=== PATIENT | male | born 1950 | race Caucasian/White ===

== ENCOUNTER 2023-09-26 16:53 | Emergency (ER) | payer MEDICARE ==
[2023-09-26 17:25] VITALS: TEMP 98
--- NOTE | 2023-09-26 19:06 | XR ---
EXAMINATION TYPE: XR foot complete RT DATE OF EXAM: 09/26/2023 5:25 PM CLINICAL INDICATION:Male, 72 years old with history of fall; [facility] TECHNIQUE: 3 views of the ankle, 3 views of the foot. Lucency consistent with acute nondisplaced oblique fracture of the distal fibular shaft extending to the level of the ankle mortise, with moderate adjacent soft tissue swelling. Ankle mortise appears pr eserved. Distal tibia appears to be intact. No significant malalignment. Talar dome is unremarkable. There are mild/moderate degenerative changes throughout the foot. No evidence of acute fracture or si gnificant malalignment. Tiny plantar calcaneal spur. IMPRESSION: Right foot and ankle: Acute nondisplaced oblique fracture of the distal fibular shaft extending to the level of the ankle m ortise, with moderate adjacent soft tissue swelling.
--- NOTE | 2023-09-26 19:07 | XR ---
EXAMINATION TYPE: XR ankle complete RT DATE OF EXAM: 09/26/2023 5:25 PM CLINICAL INDICATION:Male, 72 years old with history of fall; H COMPARISON: None TECHNIQUE: 3 views of the ankle, 3 views of the foot. Lucency consistent with acute nondisplaced oblique fracture of the distal fibular shaft extending to the level of the ankle mortise, with moderate adjacent soft tissue swelling. Ankle mortise appears pr eserved. Distal tibia appears to be intact. No significant malalignment. Talar dome is unremarkable. There are mild/moderate degenerative changes throughout the foot. No evidence of acute fracture or si gnificant malalignment. Tiny plantar calcaneal spur. IMPRESSION: Right foot and ankle: Acute nondisplaced oblique fracture of the distal fibular shaft extending to the level of the ankle m ortise, with moderate adjacent soft tissue swelling.
--- NOTE | 2023-09-26 19:10 | ED ---
General Adult HPI - General Chief complaint: Extremity Injury, Lower Stated complaint: Fall-Right foot injury Time Seen by Provider: 09/26/23 18:08 Source: patient Mode of arrival: ambulatory Limitations: no limitations - History of Present Illness Initial comments: 72-year-old male presents emergency department chief complaint of right ankle injury. He states that he was walking when he hit his leg on the post of the deck. He states that since then he has attempted to bear weight on it but it has been painful. He is not taking anything recently for pain. He does take oxycodone at home. He denies numbness, tingling. - Related Data Allergies Allergy/AdvReac Type Severity Reaction Status Date / Time No Known Allergies Allergy Verified 09/26/23 17:03 Review of Systems ROS Statement: Those systems with pertinent positive or pertinent negative responses have been documented in the HPI. ROS Other: All systems not noted in ROS Statement are negative. 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 resection of bowel. Past Psychological History: No Psychological Hx Reported Smoking Status: Never smoker Past Alcohol Use History: Rare Past Drug Use History: Marijuana General Exam Limitations: no limitations General appearance: alert, in no apparent distress Head exam: Present: atraumatic, normocephalic, normal inspection Eye exam: Present: normal appearance, PERRL, EOMI. Absent: scleral icterus, conjunctival injection, periorbital swelling ENT exam: Present: normal exam, mucous membranes moist Neck exam: Present: normal inspection. Absent: tenderness, meningismus, lymphadenopathy Extremities exam: Present: tenderness, normal capillary refill, other (DP and PT pulses 2+, right lateral ankle swelling without ecchymosis). Absent: full ROM Back exam: Present: normal inspection Neurological exam: Present: alert, oriented X3 Psychiatric exam: Present: normal affect, normal mood Skin exam: Present: warm, dry, intact, normal color Course Vital Signs 09/26/23 09/26/23 16:56 19:58 Temperature 98.0 F Pulse Rate 88 81 Respiratory 16 18 Rate Blood Pressure 147/79 168/85 O2 Sat by Pulse 96 97 Oximetry Medical Decision Making - Medical Decision Making Was pt. sent in by a medical professional or institution (THANG Arteaga, MIDDLEWARE CONSULTANT, urgent care, hospital, or long term...) When possible be specific @ -No Did you speak to anyone other than the patient for history (EMS, parent, family, police, friend...)? What history was obtained from this source @ -No Did you review nursing and triage notes (agree or disagree)? Why? @ -I reviewed and agree with nursing and triage notes Were old charts reviewed (outside hosp., previous admission, EMS record, old EKG, old radiological studies, urgent care reports/EKG's, long term records)? Report findings @ -No old charts were reviewed Differential Diagnosis (chest pain, altered mental status, abdominal pain women, abdominal pain men, vaginal bleeding, weakness, fever, dyspnea, syncope, headache, dizziness, GI bleed, back pain, seizure, CVA, palpatations, mental health, musculoskeletal)? @ -Differential Musculoskeletal Muscular strain, contusion, ligament sprain, fracture, arthritis, septic arthritis, bursitis, cellulitis, muscle spasm, nerve compression, DVT, arterial occlusion, herpes zoster, electrolyte abnormality, tumor.... This is not meant to be in all inclusive list EKG interpreted by me (3pts min.). @ -None X-rays interpreted by me (1pt min.). @ -X-ray of the right ankle shows acute oblique fracture of the distal fibular shaft extending to the level of the ankle mortise CT interpreted by me (1pt min.). @ -None done U/S interpreted by me (1pt. min.). @ -None done What testing was considered but not performed or refused? (CT, X-rays, U/S, lab s)? Why? @ -None What meds were considered but not given or refused? Why? @ -None Did you discuss the management of the patient with other professionals (professionals i.e. THANG Arteaga, MIDDLEWARE CONSULTANT, lab, RT, psych nurse, long term care social worker, him analyst, teacher, combat systems officer, director of casework department)? Give summary @ -No Was smoking cessation discussed for >3mins.? @ -No Was critical care preformed (if so, how long)? @ -No Were there social determinants of health that impacted care today? How? (Homelessness, low income, unemployed, alcoholism, drug addiction, transportation, low edu. Level, literacy, decrease access to med. care, custodial, rehab)? @ -No Was there de-escalation of care discussed even if they declined (Discuss DNR or withdrawal of care, Hospice)? DNR status @ -No What co-morbidities impacted this encounter? (DM, HTN, Smoking, COPD, CAD, Cancer, CVA, ARF, Chemo, Hep., AIDS, mental health diagnosis, sleep apnea, morbid obesity)? @ -None Was patient admitted / discharged? Hospital course, mention meds given and route, prescriptions, significant lab abnormalities, going to OR and other pertinent info. @ -Discharged. Patient presented to the emergency department for chief complaint of right ankle injury. X-ray obtained which shows oblique fracture of the distal fibula shaft. Patient was placed in the posterior splint and given crutches. Advised to follow-up with orthopedics. Patient given information for outpatient follow-up. Patient understands agreeable with plan. Patient stable at discharge. Case discussed with Dr. Diehl Undiagnosed new problem with uncertain prognosis? @ -No Drug Therapy requiring intensive monitoring for toxicity (Heparin, Nitro, Insulin, Cardizem)? @ -No Were any procedures done? @ -No Diagnosis/symptom? @ -Right ankle fracture Acute, or Chronic, or Acute on Chronic? @ -Acute Uncomplicated (without systemic symptoms) or Complicated (systemic symptoms)? @ -uncomplicated Side effects of treatment? @ -No Exacerbation, Progression, or Severe Exacerbation? @ -No Poses a threat to life or bodily function? How? (Chest pain, [place], [place], pneumonia, PE, COPD, DKA, ARF, appy, cholecystitis, CVA, Diverticulitis, Homicidal, Suicidal, threat to staff... and all critical care pts) @ -No Disposition Clinical Impression: Closed right fibular fracture Disposition: HOME SELF-CARE Condition: Stable Instructions (If sedation given, give patient instructions): Ankle Fracture ( ED) Additional Instructions: Please follow up with orthopedics. Alternate Tylenol and Motrin as needed for pain. Rest, ice, elevate the leg. Return to the emergency department for worsening symptoms. Is patient prescribed a controlled substance at d/c from ED?: No Referrals: Dandre Corbin DO [Primary Care Provider] - 1-2 days Kwasi Villarreal MD [STAFF PHYSICIAN] - 1-2 days
[2023-09-26 20:15] VITALS: BP 168/85; PULSE 81; RESP 18
== END 2023-09-26 19:59 | disposition home or self-care (01) ==
LOC: EC 16:53
DX: S82.401A Unspecified fracture of shaft of right fibula, initial encounter for closed fracture (principal); E11.9 Type 2 diabetes mellitus without complications; I10 Essential (primary) hypertension; F12.90 Cannabis use, unspecified, uncomplicated
CPT/HCPCS: 99283

== ENCOUNTER → 2023-12-03 | Outpatient (CLI) | payer MEDICARE ==
[2023-12-03 16:20] LABS: ALT 11 U/L (10-49); AST 13 U/L (14-35); Albumin 4.5 g/dL (3.8-4.9); Albumin/Globulin Ratio 1.73 Ratio (1.60-3.17); Alkaline Phosphatase 83 U/L (41-126); BUN/Creat Ratio 11.23 Ratio (12.00-20.00); Blood Urea Nitrogen 14.6 mg/dL (9.0-27.0); Calcium 9.2 mg/dL (8.7-10.3); Carbon Dioxide 21.7 mmol/L (21.6-31.8); Chloride 110 mmol/L (96-109); Chol/HDL Ratio 4.24 Ratio; Globulin 2.6 g/dL (1.6-3.3); Glucose 109 mg/dL (70-110); LDL Cholesterol,Calculated 83.9 mg/dL (0.0-131.0); Potassium 4.1 mmol/L (3.5-5.5); Sodium 142 mmol/L (135-145); Total Bilirubin 0.2 mg/dL (0.3-1.2); Total Protein 7.1 g/dL (6.2-8.2)
== END | disposition home or self-care (01) ==
LOC: LABWHC1 12:11
PROVIDERS: ATTEND Internal Medicine Clinical Cardiac Electrophysiology
DX: I10 Essential (primary) hypertension (principal); E11.9 Type 2 diabetes mellitus without complications; E03.9 Hypothyroidism, unspecified; E78.5 Hyperlipidemia, unspecified
CPT/HCPCS: 36415; 80053; 80061; 83036; 84443

== ENCOUNTER → 2024-03-15 | Outpatient (CLI) | payer MEDICARE ==
--- NOTE | 2024-03-15 16:17 | US ---
EXAMINATION TYPE: US scrotum with doppler. Grayscale and color Doppler Duplex imaging performed of brianna carrillo scrotum. 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 There is no evidence of testicular torsion. Presence of hydroceles: no Presence of varicoceles: no IMPRESSION: Complex right intratesticular masslike area suggestive of neoplasm. Further workup recommended includ ing urology consultation. Correlation with priors at outside institution may be of benefit.
== END | disposition home or self-care (01) ==
LOC: RADUSWWP 14:29
PROVIDERS: ATTEND Urology
DX: N50.89 Other specified disorders of the male genital organs (principal)
CPT/HCPCS: 76870; 93975

== ENCOUNTER 2024-04-05 06:56 | Observation (INO) | payer MEDICARE ==
--- NOTE | 2024-04-05 07:32 | ED ---
Abdominal Pain HPI - General Chief Complaint: Abdominal Pain Stated Complaint: Bowel Issues Time Seen by Provider: 04/05/24 07:02 Source: patient, RN notes reviewed Mode of arrival: ambulatory Limitations: no limitations - History of Present Illness Initial Comments: 73-year-old male presents emergency department complaint of abdominal pain. Patient states he has had multiple surgeries in his abdomen for from prior cancer that metastasized. Patient states this originated from his right kidney in which she had a nephrectomy. Patient states he had chemoradiation he has completed all of his courses. Patient denies any fevers. Patient states that he has not had a bowel movement in 10 days and he feels that symptoms are obstructed. Patient states he has to take Metamucil and MiraLAX quite often because of this issue. He denies chest pain denies shortness of breath no reports of fever. - Related Data Home Medications Medication Instructions Recorded Confirmed Atorvastatin [Lipitor] 10 mg PO HS 04/05/24 04/05/24 Finasteride [Proscar] 5 mg PO HS 04/05/24 04/05/24 Glimepiride [Amaryl] 4 mg PO BID 04/05/24 04/05/24 Labetalol [Trandate] 100 mg PO HS 04/05/24 04/05/24 Levothyroxine Sodium [Synthroid] 100 mcg PO DAILY 04/05/24 04/05/24 Tamsulosin HCl [Flomax] 0.4 mg PO HS 04/05/24 04/05/24 acetaZOLAMIDE [Diamox Sequels] 500 mg PO BID 04/05/24 04/05/24 amLODIPine BESYLATE/BENAZEPRIL 1 cap PO DAILY 04/05/24 04/05/24 [Lotrel 10-40 mg Capsule] oxyCODONE HCL [oxyCODONE HCL (IR)] 30 mg PO Q4H PRN 04/05/24 04/05/24 Allergies Allergy/AdvReac Type Severity Reaction Status Date / Time No Known Allergies Allergy Verified 04/05/24 11:51 Review of Systems ROS Statement: Those systems with pertinent positive or pertinent negative responses have been documented in the HPI. ROS Other: All systems not noted in ROS Statement are negative. 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 resection of bowel. Past Psychological History: No Psychological Hx Reported Smoking Status: Never smoker Past Alcohol Use History: Rare Past Drug Use History: Marijuana General Exam Limitations: no limitations General appearance: alert, in no apparent distress Head exam: Present: atraumatic, normocephalic, normal inspection Eye exam: Present: normal appearance, PERRL, EOMI. Absent: scleral icterus, conjunctival injection, periorbital swelling Neck exam: Present: normal inspection. Absent: tenderness, meningismus, lymphadenopathy Respiratory exam: Present: normal lung sounds bilaterally. Absent: respiratory distress, wheezes, rales, rhonchi, stridor Cardiovascular Exam: Present: regular rate, normal rhythm, normal heart sounds. Absent: systolic murmur, diastolic murmur, rubs, gallop, clicks GI/Abdominal exam: Present: soft, distended, tenderness, normal bowel sounds. Absent: guarding, rebound, rigid Back exam: Absent: CVA tenderness (R), CVA tenderness (L) Neurological exam: Present: alert Course Vital Signs 04/05/24 04/05/24 06:59 10:00 Temperature 98.5 F 97.9 F Pulse Rate 89 81 Respiratory 18 18 Rate Blood Pressure 172/82 155/92 O2 Sat by Pulse 95 97 Oximetry Medical Decision Making - Medical Decision Making Was pt. sent in by a medical professional or institution (, PA, HISTORIC SITES REGISTRAR, urgent care, hospital, or residential...) When possible be specific @ -No Did you speak to anyone other than the patient for history (EMS, parent, family, police, friend...)? What history was obtained from this source @ -No Did you review nursing and triage notes (agree or disagree)? Why? @ -I reviewed and agree with nursing and triage notes Were old charts reviewed (outside hosp., previous admission, EMS record, old EKG, old radiological studies, urgent care reports/EKG's, residential records)? Report findings @ -No old charts were reviewed Differential Diagnosis (chest pain, altered mental status, abdominal pain women, abdominal pain men, vaginal bleeding, weakness, fever, dyspnea, syncope, headache, dizziness, GI bleed, back pain, seizure, CVA, palpatations, mental health, musculoskeletal)? @ -Differential Abdominal Pain Men: Appendicitis, cholecystitis, diverticulosis, ischemic bowel, pancreatitis, hepatitis, UTI, gastroenteritis, AAA, incarcerated hernia, bowel obstruction, constipation, inflammatory bowel, hepatitis, peptic ulcer disease, splenic infarction, perforated viscus, testicular torsion, this is not meant to be an all-inclusive list EKG interpreted by me (3pts min.). @ -None X-rays interpreted by me (1pt min.). @ -None done CT interpreted by me (1pt min.). @ -CT pelvis showing evidence of moderate obstruction left ureteral calculus 3 mm moderate constipation U/S interpreted by me (1pt. min.). @ -None done What testing was considered but not performed or refused? (CT, X-rays, U/S, labs)? Why? @ -None What meds were considered but not given or refused? Why? @ -None Did you discuss the management of the patient with other professionals (professionals i.e. , PA, HISTORIC SITES REGISTRAR, lab, RT, psych nurse, social security assessor, radio dispatcher, teacher, civil preparedness training officer, caseworker protective services)? Give summary @ -Dr. Fraire regarding ureteral calculus with prior nephrectomy and concern of obstructive uropathy of 1 kidney, Dr. Waller for medical admission Was smoking cessation discussed for >3mins.? @ -No Was critical care preformed (if so, how long)? @ -No Were there social determinants of health that impacted care today? How? (Homelessness, low income, unemployed, alcoholism, drug addiction, transportation, low edu. Level, literacy, decrease access to med. care, senior living, rehab)? @ -No Was there de-escalation of care discussed even if they declined (Discuss DNR or withdrawal of care, Hospice)? DNR status @ -No What co-morbidities impacted this encounter? (DM, HTN, Smoking, COPD, CAD, Cancer, CVA, ARF, Chemo, Hep., AIDS, mental health diagnosis, sleep apnea, morbid obesity)? @ -Renal carcinoma Was patient admitted / discharged? Hospital course, mention meds given and route, prescriptions, significant lab abnormalities, going to OR and other pertinent info. @ -Admitted I did discuss case with Dr. Fraire urologist who recommends patient to be admitted for IV fluid hydration, renal stone removal as patient has prior nephrectomy on the right Undiagnosed new problem with uncertain prognosis? @ -No Drug Therapy requiring intensive monitoring for toxicity (Heparin, Nitro, Insulin, Cardizem)? @ -No Were any procedures done? @ -No Diagnosis/symptom? @ -Left ureteral calculus, SUAD Acute, or Chronic, or Acute on Chronic? @ -Acute Uncomplicated (without systemic symptoms) or Complicated (systemic symptoms)? @ -Complicated Side effects of treatment? @ -No Exacerbation, Progression, or Severe Exacerbation? @ -No Poses a threat to life or bodily function? How? (Chest pain, [place], [place], pneumonia, PE, COPD, DKA, ARF, appy, cholecystitis, CVA, Diverticulitis, Homicidal, Suicidal, threat to staff... and all critical care pts) @ -Yes surgical risk - Lab Data Result diagrams: 04/05/24 08:14 04/05/24 08:14 Lab Results 04/05/24 04/05/24 04/05/24 Range/Units 08:14 08:14 08:14 WBC 8.4 (3.8-10.6) k/uL RBC 4.82 (4.30-5.90) m/uL Hgb 13.9 (13.0-17.5) gm/dL Hct 43.4 (39.0-53.0) % MCV 90.2 (80.0-100.0) fL MCH 28.9 (25.0-35.0) pg MCHC 32.1 (31.0-37.0) g/dL RDW 14.3 (11.5-15.5) % Plt Count 120 L (150-450) k/uL MPV 10.3 Neutrophils % 87 % Lymphocytes % 7 % Monocytes % 4 % Eosinophils % 1 % Basophils % 1 % Neutrophils # 7.3 (1.3-7.7) k/uL Lymphocytes # 0.6 L (1.0-4.8) k/uL Monocytes # 0.3 (0-1.0) k/uL Eosinophils # 0.1 (0-0.7) k/uL Basophils # 0.0 (0-0.2) k/uL Sodium 142 (137-145) mmol/L Potassium 4.0 (3.5-5.1) mmol/L Chloride 113 H (98-107) mmol/L Carbon Dioxide 21 L (22-30) mmol/L Anion Gap 8 mmol/L BUN 18 (9-20) mg/dL Creatinine 1.83 H (0.66-1.25) mg/dL Est GFR (CKD-EPI)AfAm 42 (>60 ml/min/1.73 sqM) Est GFR (CKD-EPI)NonAf 36 (>60 ml/min/1.73 sqM) Glucose 177 H (74-99) mg/dL Plasma Lactic Acid Alexey (0.7-2.0) mmol/L Calcium 9.2 (8.4-10.2) mg/dL Total Bilirubin 0.9 (0.2-1.3) mg/dL AST 24 (17-59) U/L ALT 16 (4-49) U/L Alkaline Phosphatase 75 (38-126) U/L Total Protein 7.0 (6.3-8.2) g/dL Albumin 4.5 (3.5-5.0) g/dL Lipase 71 (23-300) U/L Urine Color Colorless Urine Appearance Clear (Clear) Urine pH 6.5 (5.0-8.0) Ur Specific [place] 1.008 (1.001-1.035) Urine Protein Negative (Negative) Urine Glucose (UA) Negative (Negative) Urine Ketones Negative (Negative) Urine Blood Small H (Negative) Urine Nitrite Negative (Negative) Urine Bilirubin Negative (Negative) Urine Urobilinogen <2.0 (<2.0) mg/dL Ur Leukocyte Esterase Negative (Negative) Urine RBC 4 (0-5) /hpf Urine WBC 2 (0-5) /hpf Ur Squamous Epith Cells <1 (0-4) /hpf 04/05/24 Range/Units 08:14 WBC (3.8-10.6) k/uL RBC (4.30-5.90) m/uL Hgb (13.0-17.5) gm/dL Hct (39.0-53.0) % MCV (80.0-100.0) fL MCH (25.0-35.0) pg MCHC (31.0-37.0) g/dL RDW (11.5-15.5) % Plt Count (150-450) k/uL MPV Neutrophils % % Lymphocytes % % Monocytes % % Eosinophils % % Basophils % % Neutrophils # (1.3-7.7) k/uL Lymphocytes # (1.0-4.8) k/uL Monocytes # (0-1.0) k/uL Eosinophils # (0-0.7) k/uL Basophils # (0-0.2) k/uL Sodium (137-145) mmol/L Potassium (3.5-5.1) mmol/L Chloride (98-107) mmol/L Carbon Dioxide (22-30) mmol/L Anion Gap mmol/L BUN (9-20) mg/dL Creatinine (0.66-1.25) mg/dL Est GFR (CKD-EPI)AfAm (>60 ml/min/1.73 sqM) Est GFR (CKD-EPI)NonAf (>60 ml/min/1.73 sqM) Glucose (74-99) mg/dL Plasma Lactic Acid Alexey 1.1 (0.7-2.0) mmol/L Calcium (8.4-10.2) mg/dL Total Bilirubin (0.2-1.3) mg/dL AST (17-59) U/L ALT (4-49) U/L Alkaline Phosphatase (38-126) U/L Total Protein (6.3-8.2) g/dL Albumin (3.5-5.0) g/dL Lipase (23-300) U/L Urine Color Urine Appearance (Clear) Urine pH (5.0-8.0) Ur Specific [place] (1.001-1.035) Urine Protein (Negative) Urine Glucose (UA) (Negative) Urine Ketones (Negative) Urine Blood (Negative) Urine Nitrite (Negative) Urine Bilirubin (Negative) Urine Urobilinogen (<2.0) mg/dL Ur Leukocyte Esterase (Negative) Urine RBC (0-5) /hpf Urine WBC (0-5) /hpf Ur Squamous Epith Cells (0-4) /hpf Disposition Clinical Impression: Left ureteral calculus Disposition: ADMITTED IP TO THIS [facility] Condition: Fair Time of Disposition: 09:44
[2024-04-05 07:43] VITALS: RESP 18
--- NOTE | 2024-04-05 08:18 | CT ---
EXAMINATION TYPE: CT abdomen pelvis wo con DATE OF EXAM: 04/05/2024 COMPARISON: None HISTORY: 73-year-old male Abdominal pain, multiple surgeries, HX cancer CT DLP: 1143.9 mGycm. Automated exposure control for dose reduction was used. TECHNIQUE: Contiguous axial scanning of the abdomen and pelvis without IV contrast. Coronal and sagit kaylynn reconstructions performed. FINDINGS: LUNG BASES: Heart borderline in size without pericardial effusion. 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 Strandy scarring or atelectasis in the lower lungs without pleural effusion. LIVER/GB: Mildly hydropic gallbladder but without any surrounding inflammation, likely due to fasting state. PANCREAS: No significant abnormality is seen. SPLEEN: No significant abnormality is seen. ADRENALS: No significant abnormality is seen. KIDNEYS: Right kidney is absent. There is mild to moderate hydronephrosis on the left with mild to mo derate nephric stranding and edema. Punctate 3 mm stone at the distal left ureter. LYMPH NODES: No significant abnormality is seen. BOWEL: One centimeter diverticulum of the second portion of the duodenum projecting towards the pancr eatic head region. No dilated small bowel, free fluid, or free air. Staple line at along the right si de of the colon. There is mild to moderate stool. Left-sided colonic diverticulosis and mildly redund ant sigmoid colon. No pericolonic inflammatory change. OTHER: No significant abnormality is seen. PELVIS: Mild circumferential bladder wall thickening may be chronic for the patient. No significant a bnormality is seen. BONES: Mild degenerative change at the hips. Moderate degenerative disc disease L-1-L2. Superior endp late Schmorl's node T12. Hypertrophic facet arthropathy lower lumbar spine. IMPRESSION: 1. A 3 mm stone at the distal left ureter with [id number] obstructive uropathy. Perinephric st randing and edema probably reactive to the obstruction. Correlate to exclude superimposed infection. 2. The right kidney is absent. Clinically correlate. 3. Mild circumferential bladder wall thickening may be chronic for the patient. Correlate to exclude cystitis.
[2024-04-05 08:25] LABS: Basophils % (A) 1 %; Eosinophils # (A) 0.1 k/uL (0-0.7); Eosinophils % (A) 1 %; HCT 43.4 % (39.0-53.0); HGB 13.9 gm/dL (13.0-17.5); Lymphocytes # (A) 0.6 k/uL (1.0-4.8); Lymphocytes % (A) 7 %; MCH 28.9 pg (25.0-35.0); MCHC 32.1 g/dL (31.0-37.0); MCV 90.2 fL (80.0-100.0); Mean Platelet Volume 10.3; Monocytes # (A) 0.3 k/uL (0-1.0); Monocytes % (A) 4 %; Neutrophils # (A) 7.3 k/uL (1.3-7.7); Neutrophils % (A) 87 %; Platelet Count 120 k/uL (150-450); RBC 4.82 m/uL (4.30-5.90); RDW 14.3 % (11.5-15.5); WBC 8.4 k/uL (3.8-10.6)
[2024-04-05 08:41] LABS: ALT 16 U/L (4-49); AST 24 U/L (17-59); African American GFR (CKD) 42 (>60 ml/min/1.73 sqM); Albumin 4.5 g/dL (3.5-5.0); Alkaline Phosphatase 75 U/L (38-126); Anion Gap 8 mmol/L; Blood Urea Nitrogen 18 mg/dL (9-20); Calcium 9.2 mg/dL (8.4-10.2); Carbon Dioxide 21 mmol/L (22-30); Chloride 113 mmol/L (98-107); Glucose 177 mg/dL (74-99); Lipase 71 U/L (23-300); Non-African American GFR(CKD) 36 (>60 ml/min/1.73 sqM); Sodium 142 mmol/L (137-145); Total Bilirubin 0.9 mg/dL (0.2-1.3)
[2024-04-05] MEDS: ONDANSETRON 4 MG/2 ML VIAL IVP STA (09:04)
[2024-04-05] MEDS: SODIUM CHLORIDE 0.9% 1,000 ML IV STA (09:05)
[2024-04-05 09:07] LABS: Appearance,Urine Clear (Clear); Bilirubin,Urine Negative (Negative); Blood,Urine Small (Negative); Color,Urine Colorless; Glucose,Urine (UA) Negative (Negative); Ketones,Urine Negative (Negative); Leukocyte Esterase,Urine Negative (Negative); Nitrite,Urine Negative (Negative); PH, Urine 6.5 (5.0-8.0); Protein,Urine Negative (Negative); RBC,Urine 4 /hpf (0-5); Specific Gravity,Urine 1.008 (1.001-1.035); Squamous Epithelial Cell,Urine <1 /hpf (0-4); Urobilinogen,Urine <2.0 mg/dL (<2.0); WBC,Urine 2 /hpf (0-5)
[2024-04-05] MEDS ORDERED: NALOXONE 0.4 MG/ML 1 ML VIAL IV PRN (09:43)
[2024-04-05] MEDS ORDERED: ONDANSETRON 4 MG/2 ML VIAL IVP PRN (09:43)
[2024-04-05] MEDS ORDERED: HYDROmorphone 1 MG/ML 1 ML SYRINGE IVP PRN (09:43)
[2024-04-05] MEDS: SODIUM CHLORIDE 0.9% 1,000 ML IV SCH (09:57)
[2024-04-05] MEDS: HYDROmorphone 1 MG/ML 1 ML SYRINGE IVP STA (09:57)
[2024-04-05 13:26] VITALS: TEMP 97.9
--- NOTE | 2024-04-05 14:00 | P.HPIM ---
History of Present Illness H&P Date: 04/05/24 Chief Complaint: Abdominal pain 73-year-old male with a medical history of left nephrectomy for renal cell carcinoma, hypertension, hyperlipidemia, BPH, diabetes presented for evaluation of right flank pain. Patient says that his pain started approximately 2 days ago and was associated with nausea, vomiting, sweats. He also noticed a drop in urine output. Patient denies fevers, chills, diarrhea, dysuria, dyschezia. In the emergency room, patient was afebrile, 155/92, heart rate 81, 97% on room air. CBC was remarkable for low platelets of 120, otherwise unremarkable. Basic metabolic panel showed chloride of 113, CO2 of 21. Creatinine is 1.83. Liver function tests are unremarkable. Lipase was 71. UA showed small amount of blood, otherwise unremarkable. CT of the abdomen/pelvis demonstrated a 3 mm stone in the distal left ureter with mild to moderate obstructive uropathy, perinephric stranding and edema probably reactive to the obstruction. Case was discussed with the emergency room provider and decision was made to admit the patient to observation for further management of nephrolithiasis. All Systems reviewed and pertinent positives and negatives noted in HPI, all other symptoms are negative Gen: In NAD, non-toxic HEENT: normocephalic, atraumatic, hearing acuity is intant, mucous membranes moist CVS: perfusing all extremities well, no pitting edema, Respiratory: symmetric chest expansion, no accessory muscle use, GI: soft, NTTP, ND, : no suprapubic tenderness, left CVA tenderness MSK/Derm: no rashes, cyanosis Neuro: CN II-XII intact, no motor weakness, Psych: cooperative, euthymic mood, judgment and insight is intact Labs and imaging as above Assessment/plan: Nephrolithiasis Obstructive uropathy Complicated urinary tract infection -Patient admitted to observation with urology consult -Urology evaluated the patient and plan on taking patient to the operating room for nephroureteral stent placement -Start ceftriaxone 1 g every 24 hours -Follow-up urine culture Hypertension Hyperlipidemia BPH Diabetes type 2 History of renal cell cancer status post nephrectomy -Home medications reviewed and reconciled Past Medical History Past Medical History: Diabetes Mellitus, Hypertension Additional Past Medical History / Comment(s): cx- renal - remission 09/2023 History of Any Multi-Drug Resistant Organisms: None Reported Past Surgical History: No Surgical Hx Reported Additional Past Surgical History / Comment(s): multiple for cx- nephrectromy right. resection of bowel. Past Psychological History: No Psychological Hx Reported Smoking Status: Never smoker Past Alcohol Use History: Rare Past Drug Use History: Marijuana Medications and Allergies Home Medications Medication Instructions Recorded Confirmed Type Atorvastatin [Lipitor] 10 mg PO HS 04/05/24 04/05/24 History Finasteride [Proscar] 5 mg PO HS 04/05/24 04/05/24 History Glimepiride [Amaryl] 4 mg PO BID 04/05/24 04/05/24 History Labetalol [Trandate] 100 mg PO HS 04/05/24 04/05/24 History Levothyroxine Sodium [Synthroid] 100 mcg PO DAILY 04/05/24 04/05/24 History Tamsulosin HCl [Flomax] 0.4 mg PO HS 04/05/24 04/05/24 History acetaZOLAMIDE [Diamox Sequels] 500 mg PO BID 04/05/24 04/05/24 History amLODIPine BESYLATE/BENAZEPRIL 1 cap PO DAILY 04/05/24 04/05/24 History [Lotrel 10-40 mg Capsule] oxyCODONE HCL [oxyCODONE HCL (IR)] 30 mg PO Q4H PRN 04/05/24 04/05/24 History Allergies Allergy/AdvReac Type Severity Reaction Status Date / Time No Known Allergies Allergy Verified 04/05/24 11:51 Physical Exam Osteopathic Statement: *. No significant issues noted on an osteopathic structural exam other than those noted in the History and Physical/Consult. Vitals: Vital Signs Temp Pulse Resp BP Pulse Ox 04/05/24 10:00 97.9 F 81 18 155/92 97 04/05/24 06:59 98.5 F 89 18 172/82 95 Intake and Output 04/04/24 04/05/24 04/05/24 22:59 06:59 14:59 Other: Weight 108.862 kg Results CBC & Chem 7: 04/05/24 08:14 04/05/24 08:14 Labs: Abnormal Lab Results - Last 24 Hours (Table) 04/05/24 04/05/24 04/05/24 Range/Units 08:14 08:14 08:14 Plt Count 120 L (150-450) k/uL Lymphocytes # 0.6 L (1.0-4.8) k/uL Chloride 113 H (98-107) mmol/L Carbon Dioxide 21 L (22-30) mmol/L Creatinine 1.83 H (0.66-1.25) mg/dL Glucose 177 H (74-99) mg/dL Urine Blood Small H (Negative)
--- NOTE | 2024-04-05 14:01 | P.DS ---
Providers Date of admission: 04/05/24 09:43 Expected date of discharge: 04/05/24 Attending physician: Maxim Carpenter MD Consults: 04/05/24 09:43 Consult Physician Urgent Consulting Provider: Leopoldo Fraire Consult Reason/Comments: Ureteral calculus Do you want consulting provider notified?: Already Contacted [facility] Course: Nephrolithiasis Obstructive uropathy Complicated urinary tract infection Hypertension Hyperlipidemia BPH Diabetes type 2 History of renal cell cancer status post nephrectomy 73-year-old male with a medical history of left nephrectomy for renal cell carcinoma, hypertension, hyperlipidemia, BPH, diabetes presented for evaluation of right flank pain. In the emergency room, patient was afebrile, 155/92, heart rate 81, 97% on room air. CBC was remarkable for low platelets of 120, otherwise unremarkable. Basic metabolic panel showed chloride of 113, CO2 of 21. Creatinine is 1.83. Liver function tests are unremarkable. Lipase was 71. UA showed small amount of blood, otherwise unremarkable. CT of the abdomen/pelvis demonstrated a 3 mm stone in the distal left ureter with mild to moderate obstructive uropathy, perinephric stranding and edema probably reactive to the obstruction. Case was discussed with the emergency room provider and decision was made to admit the patient to observation for further management of nephrolithiasis. Initial plan was to take the patient to the operating room for nephroureteral stent placement, however, upon reevaluation by urology, it was determined that patient had likely passed a stone as his pain had resolved. Subsequently, patient was discharged home with instructions to follow-up with primary care physician. He was also given 5 days of cefdinir to complete course of antibiotics. Gen: In NAD, non-toxic HEENT: normocephalic, atraumatic, hearing acuity is intant, mucous membranes moist CVS: perfusing all extremities well, no pitting edema, Respiratory: symmetric chest expansion, no accessory muscle use, GI: soft, NTTP, ND, : no suprapubic tenderness, no CVA tenderness MSK/Derm: no rashes, cyanosis Neuro: CN II-XII intact, no motor weakness, Psych: cooperative, euthymic mood, judgment and insight is intact Patient Condition at Discharge: Good Plan - Discharge Summary New Discharge Prescriptions: No Action acetaZOLAMIDE [Diamox Sequels] 500 mg PO BID Labetalol [Trandate] 100 mg PO HS Glimepiride [Amaryl] 4 mg PO BID oxyCODONE HCL [oxyCODONE HCL (IR)] 30 mg PO Q4H PRN PRN Reason: Pain Tamsulosin HCl [Flomax] 0.4 mg PO HS Atorvastatin [Lipitor] 10 mg PO HS Levothyroxine Sodium [Synthroid] 100 mcg PO DAILY amLODIPine BESYLATE/BENAZEPRIL [Lotrel 10-40 mg Capsule] 1 cap PO DAILY Finasteride [Proscar] 5 mg PO HS Discharge Medication List Atorvastatin [Lipitor] 10 mg PO HS 04/05/24 [History] Finasteride [Proscar] 5 mg PO HS 04/05/24 [History] Glimepiride [Amaryl] 4 mg PO BID 04/05/24 [History] Labetalol [Trandate] 100 mg PO HS 04/05/24 [History] Levothyroxine Sodium [Synthroid] 100 mcg PO DAILY 04/05/24 [History] Tamsulosin HCl [Flomax] 0.4 mg PO HS 04/05/24 [History] acetaZOLAMIDE [Diamox Sequels] 500 mg PO BID 04/05/24 [History] amLODIPine BESYLATE/BENAZEPRIL [Lotrel 10-40 mg Capsule] 1 cap PO DAILY 04/05/24 [History] oxyCODONE HCL [oxyCODONE HCL (IR)] 30 mg PO Q4H PRN 04/05/24 [History] Follow up Appointment(s)/Referral(s): Dandre Corbin DO [Primary Care Provider] - 1-2 days
--- NOTE | 2024-04-05 16:34 | P.GSCN ---
History of Present Illness Consult date: 04/05/24 Reason for Consult: Left ureteral stone History of present illness: Is a 73-year-old male with a history of solitary kidney secondary to renal cell carcinoma, underwent right-sided radical nephrectomy. Presented to the hospital with left flank pain associated with nausea and vomiting. In the ER he underwent a CT abdomen pelvis that showed evidence of a 4 mm left-sided distal ureteral stone with hydronephrosis. Creatinine was elevated at 1.8 from baseline of 1.3. No previous history of kidney stones. On evaluation in the ER he indicated he has passed the stone and the stone was seen pass. He indicated following passage of the stone he has had resolution of his symptoms. At this point he is having very minimal flank pain, denies any dysuria or gross hematuria Review of Systems - Constitutional Denies fever, Denies weight loss - EENT Ears, nose, mouth and throat: Denies dysphagia - Cardiovascular Denies chest pain, Denies shortness of breath - Gastrointestinal Reports abdominal pain, Reports nausea, Reports vomiting - Neurological Denies headaches, Denies syncope Past Medical History Past Medical History: Diabetes Mellitus, Hypertension Additional Past Medical History / Comment(s): cx- renal - remission 09/2023 History of Any Multi-Drug Resistant Organisms: None Reported Past Surgical History: No Surgical Hx Reported Additional Past Surgical History / Comment(s): multiple for cx- nephrectromy right. resection of bowel. Past Psychological History: No Psychological Hx Reported Smoking Status: Never smoker Past Alcohol Use History: Rare Past Drug Use History: Marijuana Medications and Allergies Home Medications Medication Instructions Recorded Confirmed Type Atorvastatin [Lipitor] 10 mg PO HS 04/05/24 04/05/24 History Cefdinir [Omnicef] 300 mg PO Q12HR #10 capsule 04/05/24 Rx Finasteride [Proscar] 5 mg PO HS 04/05/24 04/05/24 History Glimepiride [Amaryl] 4 mg PO BID #0 04/05/24 04/05/24 Rx Labetalol [Trandate] 100 mg PO HS 04/05/24 04/05/24 History Levothyroxine Sodium [Synthroid] 100 mcg PO DAILY 04/05/24 04/05/24 History Tamsulosin HCl [Flomax] 0.4 mg PO HS 04/05/24 04/05/24 History acetaZOLAMIDE [Diamox Sequels] 500 mg PO BID 04/05/24 04/05/24 History amLODIPine BESYLATE/BENAZEPRIL 1 cap PO DAILY 04/05/24 04/05/24 History [Lotrel 10-40 mg Capsule] oxyCODONE HCL [oxyCODONE HCL (IR)] 30 mg PO Q4H PRN 04/05/24 04/05/24 History Allergies Allergy/AdvReac Type Severity Reaction Status Date / Time No Known Allergies Allergy Verified 04/05/24 11:51 Surgical - Exam Vital Signs Temp Pulse Resp BP Pulse Ox 98.5 F 89 18 172/82 95 04/05/24 06:59 04/05/24 06:59 04/05/24 06:59 04/05/24 06:59 04/05/24 06:59 - General no distress, no pain - Eyes normal ocular movement, no pale - ENT normal nares, normal mucosa - Respiratory normal expansion, normal respiratory effort - Abdomen Abdomen: soft, non tender Results - Labs 04/05/24 08:14 04/05/24 08:14 Abnormal Lab Results - Last 24 Hours (Table) 04/05/24 04/05/24 04/05/24 Range/Units 08:14 08:14 08:14 Plt Count 120 L (150-450) k/uL Lymphocytes # 0.6 L (1.0-4.8) k/uL Chloride 113 H (98-107) mmol/L Carbon Dioxide 21 L (22-30) mmol/L Creatinine 1.83 H (0.66-1.25) mg/dL Glucose 177 H (74-99) mg/dL Urine Blood Small H (Negative) Diabetes panel 04/05/24 Range/Units 08:14 Sodium 142 (137-145) mmol/L Potassium 4.0 (3.5-5.1) mmol/L Chloride 113 H (98-107) mmol/L Carbon Dioxide 21 L (22-30) mmol/L BUN 18 (9-20) mg/dL Creatinine 1.83 H (0.66-1.25) mg/dL Glucose 177 H (74-99) mg/dL Calcium 9.2 (8.4-10.2) mg/dL AST 24 (17-59) U/L ALT 16 (4-49) U/L Alkaline Phosphatase 75 (38-126) U/L Total Protein 7.0 (6.3-8.2) g/dL Albumin 4.5 (3.5-5.0) g/dL Calcium panel 04/05/24 Range/Units 08:14 Calcium 9.2 (8.4-10.2) mg/dL Albumin 4.5 (3.5-5.0) g/dL Pituitary panel 04/05/24 Range/Units 08:14 Sodium 142 (137-145) mmol/L Potassium 4.0 (3.5-5.1) mmol/L Chloride 113 H (98-107) mmol/L Carbon Dioxide 21 L (22-30) mmol/L BUN 18 (9-20) mg/dL Creatinine 1.83 H (0.66-1.25) mg/dL Glucose 177 H (74-99) mg/dL Calcium 9.2 (8.4-10.2) mg/dL Adrenal panel 04/05/24 Range/Units 08:14 Sodium 142 (137-145) mmol/L Potassium 4.0 (3.5-5.1) mmol/L Chloride 113 H (98-107) mmol/L Carbon Dioxide 21 L (22-30) mmol/L BUN 18 (9-20) mg/dL Creatinine 1.83 H (0.66-1.25) mg/dL Glucose 177 H (74-99) mg/dL Calcium 9.2 (8.4-10.2) mg/dL Total Bilirubin 0.9 (0.2-1.3) mg/dL AST 24 (17-59) U/L ALT 16 (4-49) U/L Alkaline Phosphatase 75 (38-126) U/L Total Protein 7.0 (6.3-8.2) g/dL Albumin 4.5 (3.5-5.0) g/dL Assessment and Plan Assessment: 73-year-old male with history of solitary kidney and of presented to the hospital with a 4 mm left-sided ureteral stone, he has passed stone in the hospital. Currently asymptomatic. From urology standpoint given the passage of stone and resolution of symptoms no further intervention is needed. 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
[2024-04-05 16:43] VITALS: BP 165/83; PULSE 82
== END 2024-04-05 20:08 | disposition home or self-care (01) ==
LOC: EC 06:56 → 6NMEDSUR 09:43
PROVIDERS: ADMIT Internal Medicine; ATTEND Internal Medicine
DX: N20.1 Calculus of ureter (principal); N39.0 Urinary tract infection, site not specified; I10 Essential (primary) hypertension; E78.5 Hyperlipidemia, unspecified; N40.0 Benign prostatic hyperplasia without lower urinary tract symptoms; Z85.528 Personal history of other malignant neoplasm of kidney; Z90.5 Acquired absence of kidney; Z79.899 Other long term (current) drug therapy; Z79.84 Long term (current) use of oral hypoglycemic drugs
CPT/HCPCS: 96361; 96365; 96375; 99285; 36415; 80053; 83605; 83690; 85025; 81001; 74176; G0378; J2405; J1170

== ENCOUNTER → 2024-04-07 | Outpatient (CLI) | payer MEDICARE ==
[2024-04-07 16:37] LABS: BUN/Creat Ratio 16.57 Ratio (12.00-20.00); Blood Urea Nitrogen 23.2 mg/dL (9.0-27.0); Carbon Dioxide 19.5 mmol/L (21.6-31.8); Chloride 108 mmol/L (96-109); Glucose 145 mg/dL (70-110); Potassium 3.9 mmol/L (3.5-5.5); Sodium 140 mmol/L (135-145)
== END | disposition home or self-care (01) ==
LOC: LABWHC1 10:17
PROVIDERS: ATTEND Internal Medicine
DX: R94.4 Abnormal results of kidney function studies (principal)
CPT/HCPCS: 36415; 80048

== ENCOUNTER → 2024-07-12 | Outpatient (CLI) | payer MEDICARE ==
[2024-07-12 18:24] LABS: Basophils # (A) 0.06 X 10*3/uL (0.00-0.10); Basophils % (A) 0.9 %; Eosinophils # (A) 0.11 X 10*3/uL (0.04-0.35); Eosinophils % (A) 1.6 %; HGB 14.2 g/dL (13.0-17.0); Lymphocytes # (A) 1.26 X 10*3/uL (0.90-5.00); Lymphocytes % (A) 18.3 %; MCV 90.9 FL (80.0-97.0); Mean Platelet Volume 13.4 FL (9.5-12.2); Monocytes # (A) 0.36 X 10*3/uL (0.20-1.00); Monocytes % (A) 5.2 %; NRBC Per 100 WBC 0 X 10*3/uL (0.00-0.01); Neutrophils # (A) 5.05 X 10*3/uL (1.80-7.70); Neutrophils % (A) 73.4 %; Platelet Count 124 X 10*3/uL (140-440); RBC 4.73 X 10*6/uL (4.40-5.60); RDW 13.9 % (11.5-14.5); WBC 6.88 X 10*3/uL (4.50-10.00)
[2024-07-12 19:26] LABS: BUN/Creat Ratio 10.75 Ratio (12.00-20.00); Blood Urea Nitrogen 12.9 mg/dL (9.0-27.0); Carbon Dioxide 19.7 mmol/L (21.6-31.8); Chloride 110 mmol/L (96-109); Glucose 158 mg/dL (70-110); HCG,Quantitative Serum <3.0 mIU/mL (0.0-6.0); LDH 142 U/L (120-246); Potassium 4.1 mmol/L (3.5-5.5); Sodium 141 mmol/L (135-145)
== END | disposition home or self-care (01) ==
LOC: LABWHC1 13:18
PROVIDERS: ATTEND Urology
DX: Z01.812 Encounter for preprocedural laboratory examination (principal)
CPT/HCPCS: 36415; 80048; 82105; 83615; 84702; 85025

== ENCOUNTER → 2025-05-04 | Outpatient (CLI) | payer MEDICARE ==
[2025-05-04 15:30] LABS: ALT 25 U/L (10-49); AST 21 U/L (14-35); Albumin 4.7 g/dL (3.8-4.9); Albumin/Globulin Ratio 1.81 Ratio (1.60-3.17); Alkaline Phosphatase 100 U/L (41-126); Anion Gap 12.00 mmol/L (4.00-12.00); BUN/Creat Ratio 14.91 Ratio (12.00-20.00); Blood Urea Nitrogen 16.4 mg/dL (9.0-27.0); Calcium 9.2 mg/dL (8.7-10.3); Carbon Dioxide 20.0 mmol/L (21.6-31.8); Chloride 107 mmol/L (96-109); Cholesterol 100.00 mg/dL (0.00-200.00); Globulin 2.6 g/dL (1.6-3.3); Glucose 152 mg/dL (70-110); HDL Cholesterol 30.00 mg/dL (40.00-60.00); LDL Cholesterol,Calculated 38.0 mg/dL (0.0-131.0); Potassium 4.0 mmol/L (3.5-5.5); Sodium 139 mmol/L (135-145); Total Protein 7.3 g/dL (6.2-8.2); Triglycerides 160.00 mg/dL (0.00-149.00); VLDL Calculation 32.00 mg/dL (5.00-40.00)
== END | disposition home or self-care (01) ==
LOC: LABWHC1 10:21
PROVIDERS: ATTEND Internal Medicine Clinical Cardiac Electrophysiology
DX: E11.9 Type 2 diabetes mellitus without complications (principal); I10 Essential (primary) hypertension
CPT/HCPCS: 36415; 80053; 80061; 83036